=== PATIENT | female | born 1975 | race Caucasian/White ===

== ENCOUNTER 2017-02-18 01:20 | Emergency (ER) | payer BC, OTHER ==
[2017-02-18] MEDS ORDERED: Sodium Chloride 0.9% 1000 ML 1,000 ML IV SCH (01:45)
[2017-02-18] MEDS ORDERED: Sodium Chloride 0.9% 1000 ML 1,000 ML ONE (02:01)
--- NOTE | 2017-02-18 02:02 | ERPHSYRPT ---
- History of Present Illness Time Seen by Provider: 02/18/17 01:35 Historian: patient Exam Limitations: no limitations Patient Subjective Stated Complaint: pt states she had a lot of drainage from her hysterectomy incision tonight. Triage Nursing Assessment: pt alert and oriented, asnwers questions approp. pt ambultory with steady gait noted. respirations nonlabored with lungs cta. incision to lower abd with steri strips noted. serosang drainage noted from rt side of incision. Physician History: PT HAD A HYSTERECTOMY 13 DAYS AGO AT [facility] BY DR CHOWDARY. FOR THE PAST FEW DAYS PT HAS HAD SOME CLEAR BLOOD-TINGED DRAINAGE FROM THE RIGHT SIDE OF HER ABDOMINAL INCISION. FOR THE PAST HOUR PT NOTICED MUCH MORE DRAINAGE FROM THE SAME SITE. PT ALSO STATES HER LOWER ABDOMEN IS "HARD" BUT HAS BEEN SINCE THE SURGERY. PT DENIES FEVER, VOMITING, DIARRHEA, CHEST PAIN, BACK PAIN, SHORTNESS OF AIR. LAST BM WAS YESTERDAY WITHOUT BLOOD. Allergies/Adverse Reactions: No Known Drug Allergies Allergy (Verified 02/18/17 01:46) Home Medications: Docusate Sodium 100 mg [Colace 100 MG] 100 mg PO DAILY 02/18/17 [History] Oxycodone HCl/Acetaminophen [Percocet 5-325 mg Tablet] 1 each PO Q4H PRN PRN [History] Hx Tetanus, Diphtheria Vaccination/Date Given: Yes Hx Influenza Vaccination/Date Given: Yes (2016) Hx Pneumococcal Vaccination/Date Given: No - Review of Systems Constitutional: No Fever Respiratory: No Dyspnea Cardiac: No Chest Pain Abdominal/Gastrointestinal: Other (ABDOMINAL "HARDNESS"), No Vomiting, No Diarrhea Skin: Other (DRAINAGE FROM RIGHT SIDE OF ABDOMINAL INCISION) All Other Systems: Reviewed and Negative - Past Medical History Neurological History: Peripheral Neuropathy ENT History: No Pertinent History, Other Cardiac History: No Pertinent History Respiratory History: Asthma Endocrine Medical History: No Pertinent History Musculoskeletal History: Fibromyalgia GI Medical History: Gallbladder Disease, Ulcer History: No Pertinent History Female Reproductive Disorders: Menstrual Problems, Other Other Medical History: BLOOD CLOT RIGHT -IDIOPATHIC SLOW BOWEL ULCER 18 YRS - Past Surgical History Past Surgical History: Yes Neuro Surgical History: No Pertinent History Cardiac: No Pertinent History Respiratory: No Pertinent History Gastrointestinal: Cholecystectomy Musculoskeletal: Orthopedic Surgery Female Surgical History: Hysterectomy, Section, Tubal Ligation Other Surgical History: NOTE PRESSURE IN BACK SINCE SPINAL BLOCK 3 YRS AGO 2 C SECTIONS - [facility] en Y - Social History Smoking Status: Never smoker Exposure to second hand smoke: No Drug Use: none Patient Lives Alone: No - Female History Hx Last Menstrual Period: hyster Hx Now: (UNKNOWN) - Nursing Vital Signs Nursing Vital Signs: Initial Vital Signs Temperature 98.5 F 02/18/17 01:38 Pulse Rate 75 02/18/17 01:38 Respiratory Rate 18 02/18/17 01:38 Blood Pressure 107/62 02/18/17 01:38 O2 Sat by Pulse Oximetry 99 02/18/17 01:38 Pain Scale Pain Intensity 0 - Physical Exam General Appearance: alert Eye Exam: PERRL/EOMI Ears, Nose, Throat Exam: TMs normal, pharynx normal, moist mucous membranes Neck Exam: normal inspection Respiratory Exam: lungs clear Cardiovascular Exam: normal heart sounds Gastrointestinal/Abdomen Exam: soft, other (B.S. MILDLY HYPERACTIVE WITH SLIGHTLY INCREASED PITCH; HEALING TRANSVERSE LOWER ABDOMINAL INCISION WITH) SpO2: 99 Oxygen Delivery: Room Air Ordered Tests: Active Orders 24 hr Category Date Time Status IV Insertion STAT Care 02/18/17 01:42 Active ABDOMEN AND PELVIS W/0 CONTRAS [CT] Stat Exams 02/18/17 01:43 Taken AMYLASE Stat Lab 02/18/17 02:06 Completed BLOOD CULTURE Stat Lab 02/18/17 03:41 Ordered CBC W DIFF Stat Lab 02/18/17 02:06 Completed CMP Stat Lab 02/18/17 02:06 Completed CULTURE,WOUND Stat Lab 02/18/17 02:22 Received HCG QUALITATIVE,SERUM Stat Lab 02/18/17 02:06 Completed LIPASE Stat Lab 02/18/17 02:06 Completed MAG [MAGNESIUM] Stat Lab 02/18/17 02:06 Completed PROTIME WITH INR Stat Lab 02/18/17 02:06 Completed PTT Stat Lab 02/18/17 02:06 Completed UA W/RFX UR CULTURE Stat Lab 02/18/17 01:42 Ordered Medication Summary Generic Name Dose Route Start Last Admin Trade Name Freq PRN Reason Stop Dose Admin Sodium Chloride 1,000 mls @ 100 mls/hr 02/18/17 01:45 02/18/17 02:05 Sodium Chloride 0.9% 1000 Ml IV 03/20/17 01:44 100 mls/hr .Q10H SABINE Administration Ceftriaxone Sodium/Dextrose 1 g in 50 mls @ 100 mls/hr 02/18/17 03:42 Rocephin 1 Gm-D5w 50 Ml Bag IV 02/18/17 04:11 STAT STA Discontinued Medications Generic Name Dose Route Start Last Admin Trade Name Sylvester PRN Reason Stop Dose Admin Hydrogen Peroxide Confirm 02/18/17 03:25 Peroxide 3% Administered 02/18/17 03:26 Dose 237 ml .ROUTE .STK-MED ONE Ceftriaxone Sodium/Dextrose Confirm 02/18/17 03:35 Rocephin 1 Gm-D5w 50 Ml Bag Administered 02/18/17 03:36 Dose 1 g in 50 mls @ ud IV .STK-MED ONE Lab/Rad Data: Laboratory Result Diagrams 02/18/17 02:06 02/18/17 02:06 Laboratory Results 02/18/17 02/18/17 02/18/17 Range/Units 02:06 02:06 02:06 WBC (4.0-10.5) K/mm3 RBC (4.1-5.4) M/mm3 Hgb (12.0-16.0) gm/dl Hct (35-47) % MCV (78-100) fl MCH (26-32) pg MCHC (32-36) g/dl RDW (11.5-14.0) % Plt Count (150-450) K/mm3 MPV (6-9.5) fl Gran % (36.0-66.0) % Lymphocytes % (24.0-44.0) % Monocytes % (0.0-12.0) % Eosinophils % (0.00-5.0) % Basophils % (0.0-0.4) % Basophils # (0-0.4) INR 1.26 (0.8-3.0) APTT 29.5 (25.3-37.0) SECONDS Sodium (136-145) mEq/L Potassium (3.5-5.1) mEq/L Chloride (98-107) mEq/L Carbon Dioxide (21-32) mEq/L Anion Gap (5-15) MEQ/L BUN (9-20) mg/dL Creatinine (0.55-1.30) mg/dl Estimated GFR ML/MIN Glucose (70-110) MG/DL Calcium (8.5-10.1) mg/dL Magnesium 2.1 (1.8-2.4) mg/dL Total Bilirubin (0.2-1.0) mg/dL AST (15-37) U/L ALT (12-78) U/L Alkaline Phosphatase (46-116) U/L Serum Total Protein (6.4-8.2) gm/dL Albumin (3.4-5.0) g/dL Amylase (25-115) U/L Lipase (73-393) U/L Serum , Qual NEGATIVE (Negative) 02/18/17 02/18/17 Range/Units 02:06 02:06 WBC 11.7 H (4.0-10.5) K/mm3 RBC 4.05 L (4.1-5.4) M/mm3 Hgb 9.1 L (12.0-16.0) gm/dl Hct 30.5 L (35-47) % MCV 75.3 L (78-100) fl MCH 22.4 L (26-32) pg MCHC 29.8 L (32-36) g/dl RDW 15.8 H (11.5-14.0) % Plt Count 546 H (150-450) K/mm3 MPV 9.2 (6-9.5) fl Gran % 71.2 H (36.0-66.0) % Lymphocytes % 16.6 L (24.0-44.0) % Monocytes % 8.4 (0.0-12.0) % Eosinophils % 3.3 (0.00-5.0) % Basophils % 0.5 (0.0-0.4) % Basophils # 0.06 (0-0.4) INR (0.8-3.0) APTT (25.3-37.0) SECONDS Sodium 142 (136-145) mEq/L Potassium 3.9 (3.5-5.1) mEq/L Chloride 105 (98-107) mEq/L Carbon Dioxide 27.1 (21-32) mEq/L Anion Gap 13.3 (5-15) MEQ/L BUN 12 (9-20) mg/dL Creatinine 0.61 (0.55-1.30) mg/dl Estimated GFR > 60 ML/MIN Glucose 96 (70-110) MG/DL Calcium 8.7 (8.5-10.1) mg/dL Magnesium (1.8-2.4) mg/dL Total Bilirubin 0.30 (0.2-1.0) mg/dL AST 13 L (15-37) U/L ALT 22 (12-78) U/L Alkaline Phosphatase 125 H (46-116) U/L Serum Total Protein 7.1 (6.4-8.2) gm/dL Albumin 3.1 L (3.4-5.0) g/dL Amylase 55 (25-115) U/L Lipase 209 (73-393) U/L Serum , Qual (Negative) - Progress Discussed with DrJayy: Other (SPOKE WITH DR CHOWDARY(TAILOR HELPER)(~[id number]) WHO STATED PT MAY GO HOME AFTER I PROBE THE INCISION ONCE GENTLY WITH A Q-TIP DIPPED IN PEROXIDE(WHICH I DID WITH MORE SEROSANGUINOUS FLUID RELEASE), COVER THE INCISION WHERE IT IS OPEN AND PLACE PT ON KEFLEX. DR CHOWDARY WILL SEE PT IN HIS OFFICE ON 02/22/17.) - Departure Time of Disposition: 03:47 Departure Disposition: Home Clinical Impression: ABDOMINAL INCISION DRAINAGE, S/P ABDOMINAL HYSTERECTOMY, ANEMIA Condition: Stable Critical Care Time: No Referrals: YAJAIRA LEÓN [Primary Care Provider] - Instructions: Abdominal Pain-Adult Additional Instructions: FOLLOW UP WITH DR CHOWDARY IN HIS OFFICE ON Wednesday02/22/17. COVER INCISION DRAINAGE AREA DAILY WITH NEOSPORIN & TELFA. Prescriptions: Cephalexin Monohydrate [Keflex] 500 mg PO TID #30 capsule
[2017-02-18 02:09] LABS: BASOPHIL % 0.5 % (0.0-0.4); Eosinophil % 3.3 % (0.00-5.0); Granulocytes % 71.2 % (36.0-66.0); Lymphocytes % 16.6 % (24.0-44.0); Mean Cell Volume 75.3 fl (78-100); Mean Platelet Volume 9.2 fl (6-9.5); Monocytes % 8.4 % (0.0-12.0); Platelet Count 546 K/mm3 (150-450); Red Blood Count 4.05 M/mm3 (4.1-5.4); Red Cell Distribution Width 15.8 % (11.5-14.0); White Blood Count 11.7 K/mm3 (4.0-10.5)
[2017-02-18 02:15] LABS: Mean Corpuscular Hemoglobin 22.4 pg (26-32)
[2017-02-18 02:27] LABS: INR 1.26 (0.8-3.0)
[2017-02-18 02:29] LABS: PTT 29.5 SECONDS (25.3-37.0)
[2017-02-18 02:35] LABS: ALBUMIN 3.1 g/dL (3.4-5.0); ALKALINE PHOSPHATASE 125 U/L (46-116); ANION GAP 13.3 MEQ/L (5-15); BLOOD UREA NITROGEN 12 mg/dL (9-20); CHLORIDE 105 mEq/L (98-107); Carbon Dioxide 27.1 mEq/L (21-32); Glucose 96 MG/DL (70-110); LIPASE 209 U/L (73-393); Potassium 3.9 mEq/L (3.5-5.1); SGOT/AST 13 U/L (15-37); SGPT/ALT 22 U/L (12-78); SODIUM 142 mEq/L (136-145); Total Protein 7.1 gm/dL (6.4-8.2)
[2017-02-18] MEDS ORDERED: PEROXIDE 3% ONE (03:25)
[2017-02-18] MEDS ORDERED: ROCEPHIN 1 Gm-D5w 50 ml Bag** 1 G/50 ML IVPB IV ONE (03:35)
[2017-02-18] MEDS ORDERED: ROCEPHIN 1 Gm-D5w 50 ml Bag** 1 G/50 ML IVPB IV STA (03:42)
[2017-02-18 03:50] VITALS: BP 98/62; PULSE 67; O2SAT 97
--- NOTE | 2017-02-18 07:57 | XRAY ---
Indication: Incisional discharge following hysterectomy 2 weeks ago. Multiple contiguous axial images obtained through the abdomen and pelvis without contrast as ordered. Comparison: None. Lung bases are clear. Heart is not enlarged. Lower anterior abdominal wall demonstrates postsurgical induration without suspicious fluid or air collection. There has been previous gastric bypass surgery, cholecystectomy, and hysterectomy. Noncontrasted stomach and bowel loops appear nonobstructed. Normal appendix. Mild scattered colonic fecal debris throughout. No free fluid/air. Mild fatty liver. Remaining liver, pancreas, spleen, adrenal glands, kidneys, ureters, bladder, and aorta appear unremarkable for noncontrast exam. Osseous structures intact with bilateral L5 spondylolysis and 6 mm spondylolisthesis. Impression: 1. Lower abdominal wall postsurgical changes without abnormal fluid/air collection. 2. Mild fecal stasis without obstruction. 3. Incidental fatty liver and bilateral L5 spondylolysis with grade 1 spondylolisthesis. Comment: Preliminary interpretation was made by C. No discrepancy. CTDI 10.18
== END 2017-02-18 04:04 | disposition home or self-care (01) ==
LOC: ED 01:20
DX: T81.31XA Disruption of external operation (surgical) wound, not elsewhere classified, initial encounter (principal); Z90.710 Acquired absence of both cervix and uterus; D64.9 Anemia, unspecified; Z79.891 Long term (current) use of opiate analgesic
CPT/HCPCS: 36000; 36415; 74176; 80053; 82150; 83690; 83735; 84703; 85025; 85610; 85730; 87040; 87070; 96360; 96365; 99284; J0696; A9270-GY

== ENCOUNTER 2019-08-04 06:56 | Day surgery (SDC) | payer OTHER ==
[~2019-08-04 06:56] MED LIST: Lactated Ringers 1,000 ML IV SCH
[2019-08-04] MEDS ORDERED: DIPRIVAN 200 MG/20 ML IV ONE (08:22)
[2019-08-04] MEDS ORDERED: Xylocaine-Mpf 2% 5 Ml Vial ONE (08:22)
[2019-08-04] MEDS ORDERED: Ephedrine Sulfate 50 MG/ML ONE (08:38)
--- NOTE | 2019-08-04 09:48 | OP ---
SURGERY DATE/TIME: 08/04/2019 0826 PREOPERATIVE DIAGNOSIS: 1. SCREENING EXAM. 2. MOTHER WITH COLON CANCER. 3. ANEMIA. POSTOPERATIVE DIAGNOSIS: 1. NORMAL COLON. PROCEDURE: 1. Colonoscopy. SURGEON: Dr. Mckinley. ANESTHESIA: MAC, medication given by the anesthesia department. BRIEF HISTORY: The patient is a 44 y/o WF presenting now for colonoscopic evaluation. She reports she has been having some anemia issues. She has received some iron transfusions. She reports her mother had a history of colon cancer as well. She had a previous colon exam which was negative many years ago. The patient now presents for evaluation. She was reappraised of the risks of the procedure including the risk of perforation, phlebitis, untoward reaction to medication, bleeding, and missed lesions. The patient verbalized her understanding and desired to have the procedure performed. DESCRIPTION OF PROCEDURE: The patient was given the medications by the anesthesia department. She had continuous pulse oximetry, ECG monitoring, intermittent BP monitoring, and end tidal CO2 monitoring during the examination. She was placed in the left lateral decubitus position. A digital rectal examination was performed and revealed normal anal sphincter tone and no masses. The flexible Olympus pediatric colonoscope was used to intubate the rectum. A view of the colon was developed sequentially to the cecum. Upon insertion and withdrawal, including retroflex view in the rectum, no mucosal lesions were encountered. The scope was removed from the patient who tolerated the procedure well and was sent back to OP recovery in good condition. The prep was noted to be good.
[2019-08-04 10:18] VITALS: O2SAT 100
[2019-08-04 10:49] VITALS: BP 112/73; PULSE 74
== END 2019-08-04 10:10 | disposition home or self-care (01) ==
LOC: SDC 06:56
PROVIDERS: ATTEND Family Medicine
DX: Z12.11 Encounter for screening for malignant neoplasm of colon (principal); Z80.0 Family history of malignant neoplasm of digestive organs; D64.9 Anemia, unspecified
CPT/HCPCS: J2704